=== PATIENT | male | born 1980 | race Caucasian/White ===

== ENCOUNTER 2020-08-23 23:22 | Emergency (ER) | payer OTHER ==
[~2020-08-23] VITALS: Ht 180.3 cm; Wt 80.3 kg
[2020-08-24] MEDS ORDERED: PRED20TA PO (00:20)
--- NOTE | 2020-08-24 00:22 | NUR ---
Patient discharged to home in stable condition. Written and verbal after care instructions given. Patient verbalizes understanding of instructions. Stressed follow up or return to ER for worsening s/s.
[2020-08-24 00:29] VITALS: BP 144/82
== END 2020-08-24 00:30 | disposition home or self-care (01) ==
LOC: ER 23:22
DX: T78.49XA Other allergy, initial encounter (principal); R21 Rash and other nonspecific skin eruption; Y84.8 Other medical procedures as the cause of abnormal reaction of the patient, or of later complication, without mention of misadventure at the time of the procedure; Y92.89 Other specified places as the place of occurrence of the external cause
CPT/HCPCS: A4663